=== PATIENT | female | born 1985 | race Two or more races ===

== ENCOUNTER 2019-08-21 12:47 | Inpatient (IN) | payer SELFPAY ==
[~2019-08-21] VITALS: Ht 152.4 cm; Wt 78.9 kg
[2019-08-21] MEDS ORDERED: IV RINGERS,LACTATED 1000ML 1,000 ML IV SCH (13:12)
[2019-08-21] MEDS ORDERED: LIDOCAINE 1% PF 30 ML VIAL. INJ PRN (13:15)
[2019-08-21] MEDS ORDERED: OXYTOCIN 30 UNIT/500 ML PREMIX 500 ML IV PRN ×3 (13:15→14:15)
[2019-08-21] MEDS ORDERED: NALBUPHINE 10 MG/ML AMPUL. IV PRN ×2 (13:15)
[2019-08-21] MEDS ORDERED: 0.9 % SODIUM CHLORIDE 10 ML DISP.SYRIN. IV PRN ×2 (13:15→14:15)
[2019-08-21] MEDS ORDERED: fentaNYL PF VIAL 100 MCG/2 ML VIAL IV PRN (13:15)
[2019-08-21] MEDS ORDERED: TERBUTALINE 1 MG/ML VIAL. SQ PRN (13:15)
[2019-08-21 13:22] VITALS: BP 132/71
[2019-08-21 13:31] LABS: BASO % 1 % (0-3); EOS # 0.1 x10^3/uL (0.0-0.7); EOS % 1 % (0-3); HEMATOCRIT 37.3 % (36.0-47.0); HEMOGLOBIN 12.3 g/dL (12.0-15.5); LYMPH # 2.1 x10^3/uL (1.0-4.8); LYMPH % 24 % (24-48); MEAN CORPUSCULAR HEMOGLOBIN 29 pg (25-35); MEAN CORPUSCULAR HGB CONC 33 g/dL (31-37); MEAN CORPUSCULAR VOLUME 89 fL (79-100); MONO # 0.5 x10^3/uL (0.0-1.1); MONO % 5 % (0-9); NEUT # 6.2 x10^3/uL (1.8-7.7); NEUT % 69 % (31-73); PLATELET COUNT 244 x10^3/uL (140-400); RED BLOOD COUNT 4.21 x10^6/uL (3.50-5.40); RED CELL DISTRIBUTION WIDTH 14.4 % (11.5-14.5); WHITE BLOOD COUNT 8.9 x10^3/uL (4.0-11.0)
--- NOTE | 2019-08-21 14:11 | PDOC1 ---
OB - History Hx of Present Care: Good Care Ultrasounds: Normal mid trimester US Obstetrical Complications: None Medical Complications: None Past Family/Social History * Past Medical, Surgical, Family and Obstetric Histories reviewed from chart. Rubella: Immune RPR/VDRL: Negative GBS Status: Negative HBsAG: Negative OB - Chief Complaint & HPI Date of Admission: Date of Admission: Aug 21, 2019 at 12:47 Chief Complaint/History : 5 Para: 4 EGA: 40 Reason for admission: active labor Admission Nurse Assessment Rev: Yes OB - Admission Exam Physical Exam Vitals: VS - Last 72 Hours, by Label Date Time Temp Pulse Resp B/P (MAP) Pulse Ox O2 Delivery O2 Flow Rate FiO2 08/21/19 13:22 97.7 68 20 132/71 (91) Room Air 97.7 HEENT: Normal Heart: Regular Rate Lungs: Clear Abdomen: Gravid, Non tender, Soft Extremities: Edema Reflexes: Normal Cervical Dilatation: 7cm Effacement: 100% Station: 0 Membranes: Intact Heart Rate: Normal Accelerations: Accelerations Present Decelerations: No decelerations Contractions on Admission: < 5 Minutes Apart Intensity: Firm Text A: 40 wks IUP Active labor P: Admit labor management. Pt. desires BTL. SOL CHRISTY Jr, MD Aug 21, 2019 14:11
--- NOTE | 2019-08-21 14:12 | PDOC ---
VAGINAL DELIVERY DATE DATE: 08/21/19 TIME: 14:11 : 5 Para: 5 EGA: 40 VAGINAL DELIVERY: VTX VACCUM ASSISTED: No PLACENTA: Spontaneous 8/9 SEX: Female WEIGHT Weight [ 8 lbs. 5 oz] Nuchal Cord: Yes, Times 1 Amniotic Fluid: Clear PAIN: Natural EPISIOTOMY: No EXTENSION: No EBL 300 ml COMPLICATIONS none CONDITION pt. stable Signs of Intrauterine Infectio: None Shoulder Dystocia: No SOL CHRISTY Jr, MD Aug 21, 2019 14:12
[2019-08-21] MEDS ORDERED: ZOLPIDEM 5 MG TABLET. PO PRN (14:15)
[2019-08-21] MEDS ORDERED: SIMETHICONE 80 MG TAB.CHEW PO PRN (14:15)
[2019-08-21] MEDS ORDERED: MAG HYDROX/ALUMINUM HYD/SIMETH 30 ML ORAL.SUSP PO PRN (14:15)
[2019-08-21] MEDS ORDERED: ACETAMINOPHEN 325 MG TABLET. PO PRN (14:15)
[2019-08-21] MEDS ORDERED: diphenhydrAMINE HCL 25 MG CAPSULE PO PRN (14:15)
[2019-08-21] MEDS ORDERED: HYDROCORTISONE 1% TOPICAL OINTMENT 30GM TUBE. TP PRN (14:15)
[2019-08-21] MEDS ORDERED: MMR per PROTOCOL. MC PRN (14:15)
[2019-08-21] MEDS ORDERED: PHENYLEPH/MINERAL OIL/PETROLAT RECTAL OINTMENT TUBE. RC PRN (14:15)
[2019-08-21] MEDS ORDERED: BENZOCAINE 20% TOPICAL AEROSOL SPRAY 57GM CAN. TP PRN (14:15)
[2019-08-21] MEDS ORDERED: MAGNESIUM HYDROXIDE 2,400 MG/30 ML ORAL.SUSP. PO PRN (14:15)
[2019-08-21] MEDS: IBUPROFEN 400 MG TABLET. PO PRN ×2 (14:56→21:27)
[2019-08-21 17:19] VITALS: BP 110/57
[2019-08-21 20:30] VITALS: BP 109/65
[2019-08-21] MEDS: DOCUSATE SODIUM 100 MG CAPSULE. PO PRN (21:27)
[2019-08-21 22:20] VITALS: BP 137/69
[2019-08-22] VITALS (14 sets, daily range): BP systolic 95–122; BP diastolic 37–77
[2019-08-22 03:50] LABS: BASO % 1 % (0-3); EOS # 0.2 x10^3/uL (0.0-0.7); EOS % 2 % (0-3); HEMOGLOBIN 10.6 g/dL (12.0-15.5); LYMPH # 2.8 x10^3/uL (1.0-4.8); LYMPH % 27 % (24-48); MEAN CORPUSCULAR HEMOGLOBIN 30 pg (25-35); MEAN CORPUSCULAR HGB CONC 33 g/dL (31-37); MEAN CORPUSCULAR VOLUME 89 fL (79-100); MONO # 0.7 x10^3/uL (0.0-1.1); MONO % 7 % (0-9); NEUT # 6.6 x10^3/uL (1.8-7.7); NEUT % 64 % (31-73); PLATELET COUNT 205 x10^3/uL (140-400); RED BLOOD COUNT 3.59 x10^6/uL (3.50-5.40); RED CELL DISTRIBUTION WIDTH 14.4 % (11.5-14.5); WHITE BLOOD COUNT 10.3 x10^3/uL (4.0-11.0)
[2019-08-22] MEDS: IBUPROFEN 400 MG TABLET. PO PRN ×2 (05:53→17:49)
[2019-08-22] MEDS ORDERED: ONDANSETRON PF 4 MG/2 ML VIAL. IV PRN ×2 (07:00→13:00)
[2019-08-22] MEDS ORDERED: fentaNYL PF VIAL 100 MCG/2 ML VIAL IV PRN ×3 (07:00→13:00)
[2019-08-22] MEDS ORDERED: IV RINGERS,LACTATED 1000ML 1,000 ML IV SCH ×2 (07:00→13:00)
[2019-08-22] MEDS ORDERED: HYDROmorphone 2 MG/ML VIAL IV PRN ×2 (07:00→13:00)
[2019-08-22] MEDS ORDERED: PROCHLORPERAZINE 10 MG/2 ML VIAL. IV PRN ×2 (07:00→13:00)
[2019-08-22] MEDS ORDERED: MORPHINE SULFATE 2 MG/ML VIAL. IV PRN ×2 (07:00→13:00)
[2019-08-22] MEDS: FERROUS SULFATE 325 MG TABLET. PO SCH ×2 (08:00→15:47)
[2019-08-22] MEDS ORDERED: ROCURONIUM 50 MG/5 ML VIAL. ONE (09:56)
[2019-08-22] MEDS ORDERED: LIDOCAINE 2% PF 5 ML VIAL. ONE (09:56)
[2019-08-22] MEDS ORDERED: PROPOFOL 20 ML IV ONE (09:56)
[2019-08-22] MEDS ORDERED: fentaNYL PF VIAL 100 MCG/2 ML VIAL ONE (09:57)
[2019-08-22] MEDS ORDERED: LIDOCAINE 1%/EPI 1:100,000 20 ML VIAL. ONE (13:00)
[2019-08-22] MEDS ORDERED: NEOSTIGMINE METHYLSULFATE 5 MG/5 ML SYRINGE. ONE (13:28)
[2019-08-22] MEDS ORDERED: GLYCOPYRROLATE 1 MG/5 ML VIAL. ONE (13:28)
[2019-08-22] MEDS ORDERED: DESFLURANE 31 TO 60 MINUTES IH ONE (13:28)
[2019-08-22] MEDS ORDERED: DEXAMETHASONE SOD PHOS 4 MG/ML VIAL ONE (13:28)
[2019-08-22] MEDS ORDERED: ONDANSETRON PF 4 MG/2 ML VIAL. ONE (13:28)
--- NOTE | 2019-08-22 13:57 | PDOC ---
BRIEF OPERATIVE NOTE Date: Aug 22, 2019 Pre-Op Diagnosis Desires Sterilization Post-Op Diagnosis Same Procedure Performed Post BTL Surgeon Dr. Anguiano Anesthesia Type: General Blood Loss less than 10 ml Specimens Obtained none Findings post uterus with fundus at umbilicus; nml fallopian tubes and ovaries kinsey. Complications none Operative Note see dictation SOL ANGUIANO Jr, MD Aug 22, 2019 13:57
--- NOTE | 2019-08-22 14:03 | OP ---
DATE OF SURGERY: PREOPERATIVE DIAGNOSIS: Desires sterilization. POSTOPERATIVE DIAGNOSIS: Desires sterilization. PROCEDURE: bilateral tubal ligation via Filshie clips. SURGEON: Sol Anguiano MD ANESTHESIA: GETA. ESTIMATED BLOOD LOSS: Less than 10 mL. COMPLICATIONS: None. FINDINGS: uterus with fundus at the umbilicus. Normal fallopian tubes and ovaries bilaterally. SUMMARY: A 34-year-old 5, para 5, status post spontaneous vaginal delivery 1 day ago, who desires permanent sterilization. She was counseled on risks, benefits, and expectations as well as the failure rate and voiced clear understanding to proceed. DESCRIPTION OF PROCEDURE: The patient was taken to surgery suite and placed in dorsal supine position. She was prepped with ChloraPrep and draped in sterile fashion. After adequate anesthesia, an Allis clamp was placed on either side of the abdomen just below the umbilicus. A 0.25% Marcaine with epinephrine was injected between the 2 Allis clamps in a transverse fashion. Scalpel was utilized to make a transverse incision between the 2 Allis clamps. The subcutaneous tissue down to the fascia was entered with curved Jacinto scissors. The fascia was grasped at 12 o'clock and 6 o'clock position and entered sharply with curved Jacinto scissors. The peritoneum was grasped and entered sharply with curved Jacinto scissors. The [facility] retractors were placed. The left fallopian tube was identified and followed out to its fimbriated end with the Ting retractors. Filshie clip was applied at the isthmus region of the left fallopian tube. Same process took place with the right fallopian tube. The fascia was then reapproximated using 2-0 Vicryl suture in running fashion. Skin was reapproximated using 4-0 Vicryl suture in subcuticular manner. The patient tolerated the procedure well and was taken to recovery room in stable condition. Sponge and needle count correct x 3. SOL ANGUIANO MD DR: HONORIO/tere JOB#: [id number] / [id number]
[2019-08-22] MEDS: fentaNYL PF VIAL 100 MCG/2 ML VIAL IV PRN ×2 (14:24→14:36)
[2019-08-22] MEDS: oxyCODONE/APAP 5/325 1 TAB TABLET PO PRN (15:47)
[2019-08-22] MEDS: DOCUSATE SODIUM 100 MG CAPSULE. PO PRN (15:47)
[2019-08-23] MEDS: DOCUSATE SODIUM 100 MG CAPSULE. PO PRN (04:38)
[2019-08-23] MEDS: IBUPROFEN 400 MG TABLET. PO PRN ×2 (04:38→14:58)
[2019-08-23 04:45] VITALS: BP 120/74
[2019-08-23 08:00] VITALS: BP 120/73
[2019-08-23] MEDS: oxyCODONE/APAP 5/325 1 TAB TABLET PO PRN ×2 (08:57→14:59)
[2019-08-23 11:55] VITALS: BP 116/53
[2019-08-23 16:34] VITALS: BP 118/73
--- NOTE | 2019-08-23 17:10 | PDOC3 ---
OB DISCHARGE SUMMARY DATE OF ADMISSION: 08/21/19 DATE OF DISCHARGE: 08/23/19 REASON FOR ADMISSION: Onset of labor INTRAPARTUM PROCEDURES: Tubal Ligation, Spontanous Vag Deliv DISCHARGE DIAGNOSIS: Term Delivered DISCHARGE INFORMATION: Activity (ad esther), Diet (regular), Instructions (pelvic rest x 6 wks, no lifting > 10 lbs x 2 wks) HOSPITAL COURSE Term gestation delivered vaginally without complications and completed post tubal ligation without complications. SOL CHRISTY Jr, MD Aug 23, 2019 17:10
[2019-08-23] MEDS ORDERED: IBUP-1027 PO (17:12)
[2019-08-23] MEDS ORDERED: OXYC1TAB15 PO (17:12)
[2019-08-23] MEDS ORDERED: DOCU100C28 PO (17:12)
--- NOTE | 2019-08-23 17:12 | DISCH ---
DISCHARGE INSTRUCTIONS Condition on Discharge Condition on Discharge: Stable Activity After Discharge Activity Instructions for Disc: Activity as tolerated Lifting Instructions after Dis: No heavy lifting Driving Instructions after Dis: Do not drive today Diet after Discharge Diet after Discharge: Regular Contacting the DRSanjeev after DC Call your doctor for: Concerns you may have Follow-Up Follow up with: Dr. Anguiano in 1 week SOL ANGUIANO Jr, MD Aug 23, 2019 17:12
--- NOTE | 2019-08-23 18:01 | NUR ---
dismissed amb per pt request thru er with family to car with baby in car seat . stable on feet.
== END 2019-08-23 17:30 | disposition home or self-care (01) | DRG 798 ==
LOC: INTOOBSV 12:47 → 3 SO LND 12:47 → OBSVTOIN 12:47 → 3 NORTH 16:48
PROVIDERS: ADMIT Obstetrics & Gynecology; ATTEND Obstetrics & Gynecology
PROC: 0UL70CZ Occlusion of Bilateral Fallopian Tubes with Extraluminal Device, Open Approach (ICD-10-PCS; 2019-08-22)
PROC: 10E0XZZ Delivery of Products of Conception, External Approach (ICD-10-PCS; principal; 2019-08-22 12:15)
DX: O69.81X0 Labor and delivery complicated by cord around neck, without compression, not applicable or unspecified (principal); Z37.0 Single live birth; Z30.2 Encounter for sterilization; Z3A.40 40 weeks gestation of pregnancy
CPT/HCPCS: 36415; 85025; 86592; 86850; 86900; 86901; A7015; G0379; J1100; J2001; J2405; J2590; J2704; J2710; J3010; J3490; J7120; G0378